=== PATIENT | female | born 1945 | race Caucasian/White ===

== ENCOUNTER 2022-09-09 11:13 | Emergency (ER) | payer MEDICARE, OTHER ==
[~2022-09-09] VITALS: Ht 170.2 cm; Wt 70.6 kg
[2022-09-09] VITALS (9 sets, daily range): BP systolic 137–221; BP diastolic 65–104
[2022-09-09] MEDS ORDERED: CLONAZEPAM1 MG PO (11:33)
[2022-09-09] MEDS ORDERED: METOPROL TAR25 MG PO (11:33)
[2022-09-09] MEDS ORDERED: AMLOD/BENAZP1 CA5 PO (11:33)
[2022-09-09 12:04] LABS: BASO% 0.6 % (0-3); EOS% 1.5 % (0-8); HEMATOCRIT 45.6 % (37.0-47.0); HEMOGLOBIN 14.5 g/dl (12.0-16.0); LYMPH% 31.1 % (15-41); MEAN CELL VOLUME 95.4 fL CALC (80.0-100.0); MEAN CORPUSCULAR HGB 30.3 pG CALC (26.0-32.0); MEAN CORPUSCULAR HGB CONC 31.8 g/dL CAL (32.0-36.0); MONO% 5.7 % (2-13); NEUT# 3.98 thou/uL (2.00-7.15); NEUT% 61.1 % (42-76); RED BLOOD COUNT 4.78 mill/uL (4.20-5.60)
[2022-09-09 12:04] LABS: URINE BILIRUBIN - DIPSTICK NEGATIVE (NEGATIVE); URINE BLOOD DIPSTICK NEGATIVE (NEGATIVE); URINE COLOR YELLOW; URINE GLUCOSE - DIPSTICK NEGATIVE (NEGATIVE); URINE KETONE NEGATIVE (NEGATIVE); URINE LEUK ESTERASE NEGATIVE (NEGATIVE); URINE NITRITE - DIPSTICK NEGATIVE (Negative); URINE PH 7.5 (4.5-8.0); URINE PROTEIN - DIPSTICK NEGATIVE (NEG-TRACE); URINE UROBILINOGEN - DIPSTICK 0.2 E.U./dL (0.2)
[2022-09-09 12:18] LABS: ALBUMIN 4.7 g/dL (3.2-5.0); ALKALINE PHOSPHATASE 83 u/l (38-126); BUN 18 mg/dL (8-23); BUN/CREATININE RATIO 27 (12-20 (CALC)); CARBON DIOXIDE 28 mmol/l (22-30); CHLORIDE 106 mmol/l (95-108); CREATININE 0.7 mg/dL (0.5-1.0); GFR FOR AFR.AMER. > 60 ML/MIN (>=60 (CALC)); GFR OTHER RACES > 60 ML/MIN (>=60 (CALC)); SGOT/AST 49 u/l (9-36); SODIUM 144 mmol/l (137-146); TOTAL PROTEIN 7.7 g/dL (6.3-8.2)
[2022-09-09 12:22] LABS: ANION GAP 14 (6-22 (CALC)); BILIRUBIN, TOTAL 0.5 mg/dL (0.02-1.3); POTASSIUM 3.8 mmol/l (3.5-5.1)
[2022-09-09] MEDS ORDERED: CLONIDINE0.2 MG PO (12:36)
== END 2022-09-09 13:20 | disposition home or self-care (01) ==
LOC: ED 11:13
PROVIDERS: Nurse Practitioner
DX: I10 Essential (primary) hypertension (principal); F41.9 Anxiety disorder, unspecified; E11.9 Type 2 diabetes mellitus without complications; J44.9 Chronic obstructive pulmonary disease, unspecified

== ENCOUNTER 2024-05-08 13:55 | Emergency (ER) | payer MEDICARE, OTHER ==
[~2024-05-08] VITALS: Ht 170.2 cm; Wt 69.0 kg
[2024-05-08] VITALS (13 sets, daily range): BP systolic 146–188; BP diastolic 62–89
[~2024-05-08 13:55] MED LIST: AMLOD/BENAZP1 CA5 PO; CLONAZEPAM1 MG PO; CLONIDINE0.2 MG PO; METOPROL TAR25 MG PO
[2024-05-08 14:29] LABS: URINE BILIRUBIN - DIPSTICK Negative (NEGATIVE); URINE BLOOD DIPSTICK Negative (NEGATIVE); URINE GLUCOSE - DIPSTICK Negative (NEGATIVE); URINE KETONE Negative (NEGATIVE); URINE LEUK ESTERASE Negative (NEGATIVE); URINE NITRITE - DIPSTICK Negative (Negative); URINE PROTEIN - DIPSTICK Negative (NEG-TRACE); URINE SPECIFIC GRAVITY 1.015; URINE UROBILINOGEN - DIPSTICK 0.2 E.U./dL (0.2)
[2024-05-08 14:35] LABS: BASO% 0.4 % (0-3); EOS% 1.9 % (0-8); HEMATOCRIT 45.7 % (37.0-47.0); HEMOGLOBIN 14.8 g/dl (12.0-16.0); IMMATURE GRANULOCYTES 0.3 % (0.0-5.0); MEAN CELL VOLUME 95.6 fL CALC (80.0-100.0); MEAN CORPUSCULAR HGB CONC 32.4 g/dL CAL (32.0-36.0); MONO% 5.1 % (2-13); NEUT# 5.26 thou/uL (2.00-7.15); NEUT% 70.3 % (42-76); RED BLOOD COUNT 4.78 mill/uL (4.20-5.60); RED CELL DISTRI WIDTH 13.7 % (11.5-15.5)
[2024-05-08 14:36] LABS: URINE COLOR Yellow
[2024-05-08] MEDS ORDERED: ISOVUE-300 (Iopamidol) 100 ML SDV IV ONE ×3 (15:15→17:25)
[2024-05-08 15:37] LABS: ALBUMIN 4.1 g/dL (3.2-5.0); ALKALINE PHOSPHATASE 67 u/l (38-126); ANION GAP 12 (6-22 (CALC)); BILIRUBIN, TOTAL 0.4 mg/dL (0.02-1.3); BUN 21 mg/dL (8-23); BUN/CREATININE RATIO 30 (12-20 (CALC)); CARBON DIOXIDE 28 mmol/l (22-30); CHLORIDE 105 mmol/l (95-108); CREATININE 0.7 mg/dL (0.5-1.0); ESTIMATED GFR 87 ML/MIN (>=90 (CALC)); POTASSIUM 4.3 mmol/l (3.5-5.1); SGOT/AST 39 u/l (9-36); SODIUM 140 mmol/l (137-146)
[2024-05-08] MEDS ORDERED: GADOPICLENOL (VUEWAY) 0.5 MM/ML 3.75MM/7.5ML VIAL IV ONE (16:25)
[2024-05-08] MEDS ORDERED: DEXAMETHASONE SOD. PHOSPHATE 10 MG/ML VIAL IV ONE (17:05)
[2024-05-08] MEDS ORDERED: Iopamidol 370 (Isovue) 76% 100 ML SDV IV ONE ×2 (17:10)
[2024-05-08] MEDS ORDERED: LORazepam 2 MG/ML IV ONE (23:15)
== END 2024-05-08 23:25 | disposition short-term general hospital (02) ==
LOC: ED 13:55
PROVIDERS: Nurse Practitioner
DX: G93.89 Other specified disorders of brain (principal); G93.6 Cerebral edema; K57.32 Diverticulitis of large intestine without perforation or abscess without bleeding; E11.9 Type 2 diabetes mellitus without complications; I10 Essential (primary) hypertension; J44.9 Chronic obstructive pulmonary disease, unspecified; F41.9 Anxiety disorder, unspecified
CPT/HCPCS: A9573; J1953; J2060; Q9967